=== PATIENT | female | born 1950 | race Caucasian/White ===

== ENCOUNTER 2019-11-08 06:19 | Day surgery (SDC) | payer OTHER, BC ==
[~2019-11-08] VITALS: Ht 170.2 cm; Wt 74.8 kg
[~2019-11-08 06:19] MED LIST: CALCIUM 600 +1 EA11 PO; COQ-10100 MG PO; CRESTOR40 MG PO; FIBER0.4 GM PO; FLAX OIL1000 MG PO; GARLIC1000 MG PO; GLUCOSAMIN-CHO1 EACH PO; HYDROCHLOROTH12.5 M1 PO; LOSARTAN POTASS50 MG PO; MAGNESIUM400 MG PO; MULTIVITAMINS PO; POTASSIUM GLUCO99 M2 PO; VITAMIN B-121000 MC2 SUBLING; VITAMIN C1000 MG PO; VITAMIN D35000 UNI2 PO; VITAMIN E400 UNIT PO; XANAX 0.5 MG0.5 M1 PO; ZOLOFT100 MG PO
[2019-11-08 06:52] VITALS: BP 153/66
[2019-11-08 07:10] LABS: CALCIUM 9.2 mg/dL (8.5-10.1); CREATININE 0.8 mg/dL (0.6-1.0); POTASSIUM 3.9 mmol/L (3.5-5.1)
--- NOTE | 2019-11-17 15:32 | EKG ---
[facility] [place] [address] ELECTROCARDIOGRAM REPORT Name: GRISELDAAMBERLYSUKHI R Room #: DEP [facility] [place] [place] M.R.#: [id number] Admission: 11/08/19 Attend Phys: Nick Gonzalez DPM Discharge: 11/08/19 Date of : 48 Report #: [id number] THIS REPORT FOR: cc: Nando Mays MD, Herbert M. MD Couchonnal, Luis F. MD ~ THIS REPORT FOR: //name// [facility] Test Date: 2019-11-08 Test Time: 06:46:22 Pat Name: SUKHI VILLALOBOS Department: Room: 150 1 Gender: F Support Clerk: tamia : 1950 Requested By: Nick Gonzalez Order Number: [id number] MD: Joe Mcnulty Measurements Intervals [place] Rate: 68 P: 66 MO: 166 QRS: -17 QRSD: 90 T: 28 QT: 570 QTc: 607 Interpretive Statements Sinus rhythm Borderline left axis deviation Borderline T abnormalities, anterior leads Prolonged QT interval Baseline wander in lead(s) II,III,aVF No previous ECG available for comparison Electronically Signed On 11-08-2019 8:31:37 [employer] by Joe Mcnulty [email or web address] <ELECTRONICALLY SIGNED> By: Joe Mcnulty MD [birth year]1931 5 5 Joe Mcnulty MD /EPI
== END 2019-11-08 11:50 | disposition home or self-care (01) ==
LOC: OR 06:19 → TBA 06:20 → OR 11:50
PROVIDERS: Podiatrist Foot & Ankle Surgery
DX: S93.492A Sprain of other ligament of left ankle, initial encounter (principal); S82.832A Other fracture of upper and lower end of left fibula, initial encounter for closed fracture; S86.312A Strain of muscle(s) and tendon(s) of peroneal muscle group at lower leg level, left leg, initial encounter; M25.372 Other instability, left ankle; M19.072 Primary osteoarthritis, left ankle and foot; F41.9 Anxiety disorder, unspecified; I10 Essential (primary) hypertension; E78.00 Pure hypercholesterolemia, unspecified; Z98.890 Other specified postprocedural states; Z79.899 Other long term (current) drug therapy; Z88.0 Allergy status to penicillin; Z87.891 Personal history of nicotine dependence; Z88.2 Allergy status to sulfonamides; Z88.8 Allergy status to other drugs, medicaments and biological substances; X58.XXXA Exposure to other specified factors, initial encounter; Y93.89 Activity, other specified; Y92.89 Other specified places as the place of occurrence of the external cause; Y99.8 Other external cause status
CPT/HCPCS: 50010; 50101; 50386; 56524; 56525; 56526; 56527; 57091; 57180; 57479; 57481; 57482; 62110; 62900; 64039; 70005